=== PATIENT | male | born 1990 | race African-American/Black ===

== ENCOUNTER 2019-05-14 09:57 | Emergency (ER) | payer SELFPAY ==
[2019-05-14 10:17] VITALS: BP 120/77; PULSE 74; TEMP 98.4; BMI 31.7
--- NOTE | 2019-05-14 11:16 | PDOC ---
History of Present Illness - General Chief Complaint: Injury Stated Complaint: POSSIBLY DISLOCATED RT SHOULDER Time Seen by Provider: 05/14/19 10:24 History Source: Patient - History of Present Illness Occurred: reports: other Severity: reports: mild Upper Extremity Pain Location: right: shoulder Past History - Past Medical History Allergies/Adverse Reactions: Allergies Allergy/AdvReac Type Severity Reaction Status Date / Time No Known Allergies Allergy Verified 05/14/19 10:16 COPD: No - Immunization History Immunization Up to Date: Yes - Suicide/Smoking/Psychosocial Hx Smoking History: Never smoked Have you smoked in the past 12 months: No Information on smoking cessation initiated: No Hx Alcohol Use: No Drug/Substance Use Hx: No Review of Systems - Review of Systems ABD/GI: No: Abdominal cramping Musculoskeletal: Yes: Joint Pain. No: Joint Swelling Neurological: No: Numbness, Tingling, Weakness *Physical Exam - Vital Signs Last Vital Signs Temp Pulse Resp BP Pulse Ox 98.4 F 74 17 120/77 100 05/14/19 10:13 05/14/19 10:13 05/14/19 10:13 05/14/19 10:13 05/14/19 10:13 - Physical Exam General Appearance: Yes: Appropriately Dressed. No: Apparent Distress HEENT: positive: Normal Voice Neck: positive: Supple Respiratory/Chest: negative: Respiratory Distress Gastrointestinal/Abdominal: positive: Distended Extremity: positive: Other (LROM 2/2 pain). negative: Tender, Swelling Integumentary: positive: Dry, Warm Neurologic: positive: Fully Oriented, Alert, Normal Mood/Affect ED Treatment Course - RADIOLOGY Radiology Studies Ordered: Category Date Time Status SHOULDER-RIGHT [RAD] Stat Radiology 05/14/19 10:35 Taken Medical Decision Making - Medical Decision Making 05/14/19 11:03 28 yo M, endorses h/o rotator cuff tear to R shoulder, no surgery, here w/ pain to R shoulder s/p game of football 3 days ago. States he developed pain while pushing another player per pt. No fall. No sensory changes See exam Shoulder pain s/p football No fall Endorses h/o rotator cuff injury Exam only remarkable for pain w/ ROM XR neg for acute pathology Dc w/ OTC meds prn pain and ortho f/u *DC/Admit/Observation/Transfer Diagnosis at time of Disposition: Shoulder pain Qualifiers: Chronicity: acute Laterality: right Qualified Code(s): M25.511 - Pain in right shoulder - Discharge Dispostion Disposition: HOME Condition at time of disposition: Good - Referrals Referrals: Donaldo Ng MD [Staff Physician] - - Patient Instructions Printed Discharge Instructions: DI for Shoulder Sprain - Post Discharge Activity
== END 2019-05-14 12:16 | disposition home or self-care (01) ==
LOC: JERFT 09:57
DX: M25.511 Pain in right shoulder (principal); W51.XXXA Accidental striking against or bumped into by another person, initial encounter; Y93.61 Activity, american tackle football; Y92.321 Football field as the place of occurrence of the external cause; Y99.8 Other external cause status
CPT/HCPCS: 73030-TC-RT-FY; 99282-25